=== PATIENT | female | born 1985 | race Caucasian/White ===

== ENCOUNTER 2018-03-31 13:59 | Emergency (ER) | payer OTHER ==
[~2018-03-31] VITALS: Ht 167.6 cm; Wt 68.0 kg
[2018-03-31 15:42] VITALS: BP 119/71
== END 2018-03-31 15:43 | disposition home or self-care (01) ==
LOC: M.ERS 13:59
DX: S50.11XA Contusion of right forearm, initial encounter (principal); F17.210 Nicotine dependence, cigarettes, uncomplicated; W20.8XXA Other cause of strike by thrown, projected or falling object, initial encounter; Y93.89 Activity, other specified; Y92.89 Other specified places as the place of occurrence of the external cause; Y99.8 Other external cause status